=== PATIENT | male | born 1945 | race Caucasian/White ===

== ENCOUNTER → 2018-10-19 | Outpatient (CLI) | payer MEDICARE, OTHER ==
[~2018-10-19] MED LIST: REGADENOSON 0.4 MG/5 ML DISP.SYRIN. IV ONE
--- NOTE | 2018-10-19 14:50 | RAD ---
MR#: [id number] Date of Study: 10/19/2018 Ordering Physician: JAYCOB OLMOS, Referring Physician: TRESSA MORRIS Tech: RT Angela (R) (N) APPROVED REPORT Test Type: Pharmacological Stress Nurse/Tech: Mara Dickinson RN Test Indications: dyspnea on exertion Cardiac History: No known cardiac Medications: See Electronic Medical Record Medical History: See Electronic Medical Record Resting ECG: SB PVC Resting Heart Rate: 52 bpm Resting Blood Pressure: 152/85mmHg Pretest Chest Pain: None Nurse/Tech Notes Lungs CTA, S1S2 Consent: The procedure was explained to the patient in lay terms. Informed consent was witnessed. Karthik eout was entered into [employer]. History and Stress Test performed by Mara Dickinson RN Pharm. Details Pharmacologic stress testing was performed using 0.4mg per 5ml of regadenoson given intravenously ove r 7-10 seconds. Stress Symptoms No chest pain or symptoms. POST EXERCISE Reason for Termination: Infusion complete Max HR: 88 bpm Max Blood Pressure: 157/75mmHg Blood Pressure response to exercise: Normal blood pressure response during stress. Heart Rate response to exercise: Normal Response Chest Pain: No. Arrhythmia: Yes. see above baseline ST Change: No. INTERPRETATION Stress EKG Conclusion: The resting EKG shows a sinus rhythm with nonspecific ST segment changes and P VCs. The stress EKG shows no significant changes from baseline. No EKG evidence of stressed induced ischemia. Imaging Protocol IMAGE PROTOCOL: Rest Tc-99m/stress Tc-99m 1 day Rest: Stress: Viability: Radiopharm.Tc99m [id number] Sestamibi Bxtp24bRm 33mCi Duration 13min. 13min. Img Date 10/19/2018 10/19/2018 Inj-Img [id number]. 60min. Rest Admin Site:IV - Left AntecubitalAdministrator:RT Jd (R)(N) Stress Admin Site: IV - Left AntecubitalAdministrator: MILKA Rose STRESS DATA End Diast. Vol.162.0mlLVEDV index BSA81.0ml End Syst. Vol.72.0mlLVESV index BSA36.0ml Myocardial Zkyr785.0gEject. Swjgbhza64.0% Stress Scores Regional WT0.00Summed WT9.00 Regional WM0.00Summed WM3.00 LV Perfusion The stress scans show a small inferior wall defect. The rest scans show a small inferior wall defect. 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 There is no significant reversible ischemia present. Wall Motion Left ventricular systolic function shows no regional wall motion abnormalities and an ejection fracti on of 56%. LV Perf. Quant 17 Seg. SSS3.00 17 Seg. SRS6.00 17 Seg. SDS0.00 Stress Defect Extent (% LAD)0.00Rest Defect Extent (% LAD)4.40Rev. Defect Extent (% LAD)0.00 Stress Defect Extent (% LCX) 0.00Rest Defect Extent (% LCX)2.50Rev. Defect Extent (% LCX)0.00 Stress Defect Extent (% RCA)24.40Rest Defect Extent (% RCA)31.10Rev. Defect Extent (% RCA)0.00 Stress Defect Extent (% ROMY)5.40Rest Defect Extent (% ROMY)10.40Rev. Defect Extent (% ROMY)0.00 Conclusion 1. No EKG evidence of stressed induced ischemia. 2. Nuclear imaging is positive for a small inferior wall defect. 3. Nuclear imaging shows no reversible ischemia. 4. Ejection fraction is 56% with no regional wall motion abnormalities. 5. Moderate to moderately low risk study. Signed by : Jaycob Olmos MD Electronically Approved : 10/19/2018 14:49:32
== END | disposition home or self-care (01) ==
LOC: NM 08:57
PROVIDERS: ATTEND Internal Medicine Cardiovascular Disease
DX: R06.09 Other forms of dyspnea (principal); I49.3 Ventricular premature depolarization
CPT/HCPCS: 78452; 93017; 96374; A9500; J2785